=== PATIENT | female | born 2000 | race Hispanic/Latino ===

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

== ENCOUNTER 2024-03-15 13:46 | Observation (INO) | payer SELFPAY ==
[~2024-03-15 13:46] MED LIST: Iopamidol-370 76% 500 ML MDV (1 ML CHARGE) ONE
[2024-03-15] MEDS ORDERED: LORazepam 2 MG/ML SYR.(CARPUJECT) ONE (14:51)
[2024-03-15] MEDS ORDERED: Dexamethasone 10 MG/ML VIAL ONE (14:51)
[2024-03-15] MEDS ORDERED: Meclizine HCl 25 MG TAB ONE (14:51)
[2024-03-15] MEDS ORDERED: Ondansetron PF 4 MG/2 ML Vial ONE (14:51)
[2024-03-15 14:58] LABS: #Basophils Less than 0.03 10x3/uL (0.0-0.2); #Eosinphils Less than 0.03 10x3/uL (0.0-0.7); %Basophils 0.2 % (0.0-1.0); %Eosinophils 0.1 % (0.0-10.0); %Lymphocytes 7.8 % (21.0-51.0); %Monocytes 2.5 % (0.0-10.0); Hematocrit 35.6 % (36.0-47.0); Hemoglobin 11.4 g/dL (12.0-16.0); Mean Corpuscular Hemoglobin 24.3 pg (27.0-31.0); Mean Corpuscular Volume 75.9 fL (78.0-98.0); Mean Platelet Volume 10.5 fL (7.4-10.4); Platelet Count 360 10x3/uL (130-400); RBC Distribution Width 16.8 % (11.5-14.5); Red Blood Cell (RBC) Count 4.69 mill/uL (4.20-5.40)
[2024-03-15 15:07] LABS: BHCG - Serum Negative (NEGATIVE); Pregs Control Background? CLEAR/WHITE (CLR/WHITE); Pregs Control Bar Appear? YES (CONTROL BAR)
[2024-03-15 15:10] LABS: Bilirubin Negative (Negative); Blood, Urine 3+ (Negative); CAUTI Indications for Culture Acute Hematuria; Clarity Turbid (Clear); Glucose, Urine (Dipstick) Normal (Negative); Ketone, Urine Negative (Negative); Leukocyte 75 Leu/uL (Negative); Nitrite Negative (Negative); Protein, Urine (Dipstick) 30 mg/dL (Neg-Trace); RBC/HPF Greater than 50 HPF (0-3); Specific Gravity, Urine 1.023 (1.002-1.036); Urobilinogen Normal mg/dL (Less than 2); WBC/HPF 21-50 HPF (0-3); pH, Urine 7.5 (5.0-9.0)
[2024-03-15 15:15] LABS: ALT (SGPT) 11 U/L (8-55); AST (SGOT) 19 U/L (5-34); Albumin 4.4 g/dL (3.5-5.0); Alkaline Phosphatase 72 U/L (40-110); Anion Gap 15 mmol/L (10-20); BUN (Urea Nitrogen) 11 mg/dL (7.0-18.7); Bilirubin, Total 0.2 mg/dL (0.2-1.2); Calc. Creatinine Clearance 0 mL/min (70-130); Calcium 9.5 mg/dL (7.8-10.44); Carbon Dioxide 18 mmol/L (22-29); Chloride 112 mmol/L (98-107); Estimated GFR 130; Globulin 3.9 g/dL (2.4-3.5); Glucose 97 mg/dL (70-105); Potassium 3.6 mmol/L (3.5-5.1); Protein, Total 8.3 g/dL (6.0-8.3); Sodium 141 mmol/L (136-145)
[2024-03-15 15:21] LABS: Bacteria/HPF 1+ HPF (None Seen)
[2024-03-15 15:23] LABS: Urine Culture Reflex Yes Yes
[2024-03-15] MEDS ORDERED: cefTRIAXone (ROCEPHIN) 2 GM VIAL ONE (17:15)
[2024-03-15 18:25] LABS: Influenza A by NAA Not Detected (NotDetected); Influenza B by NAA Not Detected (NotDetected); SARS-CoV-2 NAA Rapid Test Not Detected (NotDetected)
[2024-03-15 21:52] VITALS: BMI 21.0
[2024-03-15] MEDS ORDERED: Ondansetron PF 4 MG/2 ML Vial IVP PRN (22:03)
[2024-03-15] MEDS ORDERED: Ondansetron ODT 4 MG TAB PO PRN (22:03)
[2024-03-15] MEDS ORDERED: Acetaminophen 325 MG TAB PO PRN (22:03)
[2024-03-16 06:52] LABS: Anion Gap 14 mmol/L (10-20); BUN (Urea Nitrogen) 8 mg/dL (7.0-18.7); Calc. Creatinine Clearance 107 mL/min (70-130); Calcium 9.1 mg/dL (7.8-10.44); Carbon Dioxide 20 mmol/L (22-29); Chloride 113 mmol/L (98-107); Estimated GFR 127; Glucose 105 mg/dL (70-105); Potassium 3.6 mmol/L (3.5-5.1); Sodium 143 mmol/L (136-145)
[2024-03-16] MEDS: Lorazepam 2 MG/ML VIAL SLOW IVP SCH (09:40)
[2024-03-16] MEDS: Cefdinir 300 MG CAP PO SCH (10:53)
[2024-03-16] MEDS: Famotidine 20 MG TAB PO SCH (10:53)
[2024-03-16] MEDS: Famotidine/PF 20 mg/2ml Vial SLOW IVP SCH (10:55)
[2024-03-16 12:30] VITALS: TEMP 98.8
[2024-03-16] MEDS: ALPRAZolam 0.5 MG TAB PO SCH (13:20)
[2024-03-16] MEDS: Sodium Chloride 0.9% 500 ML IV SCH (13:21)
[2024-03-16 14:11] LABS: Lactic Acid 1.8 mmol/L (0.5-2.2)
[2024-03-16 15:56] VITALS: BP 107/74
== END 2024-03-16 16:01 | disposition home or self-care (01) ==
LOC: ERS 13:46 → 2SW 20:00
PROVIDERS: ADMIT Student in an Organized Health Care Education/Training Program; ATTEND Internal Medicine
DX: E87.8 Other disorders of electrolyte and fluid balance, not elsewhere classified (principal); G11.9 Hereditary ataxia, unspecified; R42 Dizziness and giddiness; Z79.899 Other long term (current) drug therapy
CPT/HCPCS: 36415; 70450; 70551; 71045; 71275; 80048; 80053; 81001; 83605; 84703; 85025; 85379; 87040; 87086; 93005; 96361; 96365; 96375; G0378; J0696; J1100; J2060; J2405; J7030; Q9967

== ENCOUNTER 2025-07-06 14:32 | Emergency (ER) | payer SELFPAY ==
[2025-07-06] MEDS ORDERED: Ketorolac Tromethamine 30 MG (1 mL) VIAL ONE (15:24)
[2025-07-06] MEDS ORDERED: Ondansetron PF 4 MG/2 ML Vial ONE (15:37)
[2025-07-06] MEDS ORDERED: Dexamethasone 10 MG/ML VIAL ONE (15:37)
[2025-07-06] MEDS ORDERED: Amoxicillin/Potassium Clav 250 MG TAB ONE (15:40)
[2025-07-06 15:56] LABS: #Basophils 0.03 10x3/uL (0.0-0.2); #Eosinophils Less than 0.03 10x3/uL (0.0-0.7); #Monocytes 0.70 10x3/uL (0.11-0.59); #Neutrophils 15.04 10x3/uL (1.40-6.50); %Basophils 0.2 % (0.0-1.0); %Eosinophils 0.1 % (0.0-10.0); %Lymphocytes 3.9 % (21.0-51.0); %Monocytes 4.3 % (0.0-10.0); %Neutrophils 91.2 % (42.0-75.0); Hematocrit 34.5 % (36.0-47.0); Hemoglobin 10.5 g/dL (12.0-16.0); Mean Corpuscular Hemoglobin 22.2 pg (27.0-31.0); Mean Corpuscular Volume 72.9 fL (78.0-98.0); Platelet Count 377 10x3/uL (130-400); Red Blood Cell (RBC) Count 4.73 mill/uL (4.20-5.40); White Blood Cell (WBC) Count 16.47 10x3/uL (4.8-10.8)
[2025-07-06 16:05] LABS: ALT (SGPT) 10 U/L (Less than 34); AST (SGOT) 21 U/L (11-34); Albumin 4.3 g/dL (3.1-4.5); Alkaline Phosphatase 75 U/L (40-110); Anion Gap 15 mmol/L (10-20); BUN (Urea Nitrogen) 8 mg/dL (7.0-18.7); Bilirubin, Total 0.2 mg/dL (0.3-1.2); Calc. Creatinine Clearance 0 mL/min (70-130); Calcium 8.9 mg/dL (7.8-10.44); Carbon Dioxide 21 mmol/L (22-29); Chloride 107 mmol/L (98-107); Globulin 3.6 g/dL (2.4-3.5); Glucose 104 mg/dL (70-105); Potassium 3.3 mmol/L (3.5-5.1); Sodium 140 mmol/L (136-145)
[2025-07-06 16:51] LABS: Anisocytosis SLIGHT = 6-15 cells HPF (0-5); Macrocytosis SLIGHT = 6-15 cells HPF (0-5); Microcytosis SLIGHT = 6-15 cells HPF (0-5); Ovalocytes SLIGHT = 2-5 cells HPF (0-1); Platelet Adequacy Comment Platelets Normal; Polychromasia SLIGHT = 2-3 cells HPF (0-2); Schistocytes SLIGHT = 2-5 cells HPF (0-1); Stomatocytes SLIGHT = 2-5 cells HPF (0-1)
== END 2025-07-06 18:01 | disposition home or self-care (01) ==
LOC: ERS 14:32
DX: J02.0 Streptococcal pharyngitis (principal); E86.0 Dehydration; D72.829 Elevated white blood cell count, unspecified
CPT/HCPCS: 80053; 85025; 87430; 96361; 96374; 96375; J1100; J1885